=== PATIENT | female | born 1970 | race African-American/Black ===

== ENCOUNTER 2017-04-22 05:47 | Emergency (ER) | payer SELFPAY ==
[2017-04-22] MEDS ORDERED: Dexamethasone 4 mg/ml Vial ONE (07:33)
[2017-04-22] MEDS ORDERED: Dexamethasone 10 MG/ML VIAL ONE (09:14)
--- NOTE | 2017-04-22 10:45 | CT ---
NECK CT WITH IV CONTRAST: HISTORY: A 46-year-old female with a history of sore throat with abnormal void. FINDINGS: Postcontrast examination of the soft tissue neck demonstrates some bilateral ethmoid and maxillary si nus mucosal disease. There is some congestion in the posterior nasal turbinate region. There is pro minent fullness of the adenoid tissue and somewhat less so the tonsillar tissue bilaterally. There i s artifact from dental metal at this location and there also appears to be motion artifact, probably the patient swallowed during the examination which considerably lowers the sensitivity of this study in this region. This somewhat obscures the airway at this location. There is no evidence for mass e ffect. No evidence for abnormal low-attenuation to suggest an abscess. There is a 1.5 cm right jugu lodigastric lymph node with some smaller lymph nodes bilaterally in the jugular chains. The parotid glands and submaxillary glands appear unremarkable bilaterally. Thyroid gland is unremarkable. The supraglottic, glottic, and infraglottic regions appear normal. IMPRESSION: Very prominent diffuse soft tissue changes in the region of the nasopharynx along with diffuse-appear ing swelling of the soft palate, posterior nasopharynx, adenoid tissue, and tonsillar tissue with archie e resultant narrowing and indistinction of the airway at the level of the nasopharynx. There is no e vidence for an obvious low-attenuation abscess. No right or left-sided asymmetric mass. Exam is patel ited as far as sensitivity is concerned at this level because of motion artifact presumably from swal lowing as well as dental metal artifact through this location. There is a borderline-sized right jug ulodigastric node at 1.5 cm with some smaller bilateral jugular nodes. No evidence for a drainable a bscess. This was reviewed in consensus with Dr. Perez. Findings were discussed with Dr. Lyn by phone at 8:40 a.m. CODE CR POS: [facility]
[2017-04-22] MEDS ORDERED: Iopamidol 370 76% 100 ML VIAL ONE (13:25)
== END 2017-04-22 09:34 | disposition home or self-care (01) ==
LOC: ERS 05:47
DX: J03.90 Acute tonsillitis, unspecified (principal); I10 Essential (primary) hypertension; Z79.899 Other long term (current) drug therapy
CPT/HCPCS: 70491; 87081; 87430; 96374; 96375; J0696; J1100

== ENCOUNTER 2019-10-22 22:23 | Emergency (ER) | payer SELFPAY ==
[2019-10-22] MEDS ORDERED: Morphine 4 MG/ML VIAL ONE (22:44)
[2019-10-22] MEDS ORDERED: Ketorolac Tromethamine 30 MG/ML VIAL ONE (22:44)
--- NOTE | 2019-10-22 23:21 | RAD ---
Lumbar spine 3 views: HISTORY: Low back pain COMPARISON: 03/13/2011 FINDINGS: Minimal left convex curvature of the lumbar spine is again seen. No acute fracture, subluxation or abilio ny destruction is identified. There is intervertebral disc space narrowing at L4-5 and L5-S1 levels.
== END 2019-10-22 23:25 | disposition home or self-care (01) ==
LOC: ERS 22:23
DX: M54.41 Lumbago with sciatica, right side (principal); I10 Essential (primary) hypertension
CPT/HCPCS: 72100; 96372; J1885; J2270

== ENCOUNTER 2020-12-12 20:32 | Emergency (ER) | payer SELFPAY ==
[2020-12-12 22:07] LABS: Hemoglobin 12.4 g/dL (12.0-16.0); Mean Corpuscular HGB CONC 32.8 g/dL (32.0-36.0); Mean Corpuscular Hemoglobin 29.1 pg (27.0-31.0); Mean Corpuscular Volume 88.7 fL (78.0-98.0); Mean Platelet Volume 8.2 fL (7.4-10.4); Platelet Count 260 thou/uL (130-400); RBC Distribution Width 13.3 % (11.5-14.5); Red Blood Cell (RBC) Count 4.25 mill/uL (4.20-5.40); White Blood Cell (WBC) Count 7.6 thou/uL (4.8-10.8)
[2020-12-12 22:20] LABS: ALT (SGPT) 11 U/L (8-55); AST (SGOT) 12 U/L (5-34); Albumin 4.2 g/dL (3.5-5.0); Alkaline Phosphatase 110 U/L (40-110); Anion Gap 15 mmol/L (10-20); BUN (Urea Nitrogen) 14 mg/dL (9.8-20.1); Bilirubin, Total 0.3 mg/dL (0.2-1.2); Calc. Creatinine Clearance 0 mL/min (70-130); Calcium 9.4 mg/dL (7.8-10.44); Carbon Dioxide 25 mmol/L (22-29); Chloride 107 mmol/L (98-107); Globulin 3.5 g/dL (2.4-3.5); Glucose 109 mg/dL (70-105); Potassium 3.9 mmol/L (3.5-5.1); Protein, Total 7.7 g/dL (6.0-8.3); Sodium 143 mmol/L (136-145)
[2020-12-12 22:27] LABS: #Basophils 0.1 thou/uL (0.0-0.2); #Eosinphils 0.3 thou/uL (0.0-0.7); #Lymphocytes 3.4 thou/uL (1.20-3.40); #Monocytes 0.5 thou/uL (0.11-0.59); #Neutrophils 3.3 thou/uL (1.40-6.50); %Basophils 1.3 % (0.0-1.0); %Eosinophils 3.4 % (0.0-10.0); %Lymphocytes 44.7 % (21.0-51.0); %Monocytes 6.8 % (0.0-10.0); %Neutrophils 43.7 % (42.0-75.0); RBC Morphology Normal
== END 2020-12-12 23:25 | disposition home or self-care (01) ==
LOC: ERS 20:32
DX: S80.12XA Contusion of left lower leg, initial encounter (principal); I10 Essential (primary) hypertension; Z79.899 Other long term (current) drug therapy
CPT/HCPCS: 36415; 71045; 80053; 83880; 85025; 85379; 93970